=== PATIENT | female | born 1985 | race American Indian/Alaskan Native ===

== ENCOUNTER 2021-10-06 07:47 | Emergency (ER) | payer SELFPAY ==
[2021-10-06 08:01] VITALS: BP 133/68
--- NOTE | 2021-10-06 08:06 | Emergency Department Report ---
ED Seizure HPI - General Chief Complaint: Seizure Stated Complaint: sEIZURE Time Seen by Provider: 10/06/21 07:48 Source: patient, EMS Mode of arrival: Wheelchair Limitations: No Limitations - History of Present Illness Initial Comments: Chief complaint: Seizure HPI: This is a 36-year-old female with history of insulin-dependent diabetes who presents with seizure activity. Seizure witnessed by . Lasted 5 minutes. Generalized tonic-clonic seizure. Patient did bite her tongue. She was in her normal state of health. Recent change in medication. Her dose of NovoLog 70/30 recently changed. She takes 60 units twice a day. Patient arrive d via EMS. Additional history obtained by her . Over the last 2 weeks he has noticed at least 4 episodes in the middle night. During these episodes, patient would sit up out of her sleep. She would seem dazed. She would not speak or answer questions during these episodes. Today she had a similar episode. She awakened out of sleep. She would not answer questions or make eye contact. She started jerking. She then had a full seizure witnessed by . She had a recent job change. New Job requires more energy and more hours. No new social stressors otherwise. According to she drinks wine on occasion. MD Complaint: seizure -: Sudden, This morning Description of Episode: loss of consciousness, tonic-clonic movement Witnessed:: Yes Trauma: Yes (Tongue bite) Seizure History: none Place: home Possible Precipitating Event: none Associated Symptoms: denies other symptoms Treatments Prior to Arrival: none, other (EMS transport) - Related Data Allergies Allergy/AdvReac Type Severity Reaction Status Date / Time No Known Allergies Allergy Verified 10/06/21 07:53 ED Review of Systems ROS: Stated complaint: sEIZURE Other details as noted in HPI Comment: All other systems reviewed and negative Constitutional: denies: chills, fever, malaise ENT: denies: throat pain Respiratory: denies: cough, shortness of breath Cardiovascular: denies: chest pain Gastrointestinal: denies: abdominal pain, nausea ED Past Medical Hx - Past Medical History Previous Medical History?: Yes Hx Diabetes: Yes - Surgical History Past Surgical History?: Yes Additional Surgical History: LEEP procedure - Social History Smoking Status: Never Smoker Substance Use Type: Alcohol ED Physical Exam - General Limitations: No Limitations General appearance: alert, in no apparent distress - Head Head exam: Present: atraumatic, normocephalic - Eye Eye exam: Present: normal appearance - ENT ENT exam: Present: mucous membranes moist - Neck Neck exam: Present: normal inspection, full ROM - Respiratory Respiratory exam: Present: normal lung sounds bilaterally. Absent: respiratory distress, wheezes, rales, rhonchi - Cardiovascular Cardiovascular Exam: Present: normal rhythm, tachycardia, normal heart sounds. Absent: systolic murmur, diastolic murmur, rubs, gallop - GI/Abdominal GI/Abdominal exam: Present: soft, normal bowel sounds. Absent: distended, tenderness, guarding, rebound - Extremities Exam Extremities exam: Present: normal inspection - Neurological Exam Neurological exam: Present: alert, oriented X3 - Psychiatric Psychiatric exam: Present: normal affect, normal mood - Skin Skin exam: Present: warm, dry, intact, normal color. Absent: rash ED Course Vital Signs 10/06/21 10/06/21 10/06/21 08:00 08:01 08:04 Temperature 97.5 F L Pulse Rate 110 H Respiratory 16 Rate Blood Pressure 133/68 [Left] O2 Sat by Pulse 100 100 Oximetry ED Medical Decision Making - Lab Data Result diagrams: 10/06/21 08:31 10/06/21 08:31 - Radiology Data Radiology results: report reviewed CT head without contrast: No acute abnormality - Medical Decision Making First procedure: For previous episodes during the night whereas patient days and unresponsive to questioning. I suspect recurrent hypoglycemia. Patient recently decreased her NovoLog 70/30 dose from 70 units to 60 units. Her hemoglobin A1c is in the 5 range. I recommended neurology evaluation. Chemistry reflects lactic acidosis seizure history. I do not suspect DKA with normal glucose. Labs otherwise unremarkable. She is discharged home with neurology follow-up. She understands that she is not allowed to drive. Recommended to avoid heat surfaces or swimming. Critical care attestation.: If time is entered above; I have spent that time in minutes in the direct care of this critically ill patient, excluding procedure time. ED Disposition Clinical Impression: Seizure, Insulin dependent diabetes mellitus Disposition: 01 HOME / SELF CARE / HOMELESS Is pt being admited?: No Does the pt Need Aspirin: No Condition: Stable Instructions: Diabetes Mellitus Type 2 in Adults (ED), Seizure, Adult Referrals: KOURTNEY LEOS MD [Referring] - 3-5 Days
[2021-10-06 09:16] LABS: Basophils % (Auto) TNR % (0.0-1.8); Eosinophils % (Auto) TNR % (0.0-4.3); Hematocrit TNR % (30.3-42.9); Hemoglobin TNR gm/dl (10.1-14.3); Lymphocytes % (Auto) TNR % (13.4-35.0); Mean Corpuscular HGB Conc TNR % (30-34); Mean Corpuscular Volume TNR fl (79-97); Monocytes % (Auto) TNR % (0.0-7.3); Platelet Count TNR K/mm3 (140-440); Red Blood Count TNR M/mm3 (3.65-5.03); Red Cell Distribution Width TNR % (13.2-15.2)
[2021-10-06 09:17] LABS: Basophils # (Auto) TNR K/mm3 (0.0-0.1); Eosinophils # (Auto) TNR K/mm3 (0.0-0.4); Lymphocytes # (Auto) TNR K/mm3 (1.2-5.4); Monocytes # (Auto) TNR K/mm3 (0.0-0.8)
[2021-10-06 09:32] LABS: Alanine Aminotransferase 14 units/L (7-56); BUN/Creatinine Ratio 16; Blood Urea Nitrogen 13 mg/dL (7-17); Calcium 8.8 mg/dL (8.4-10.2); Hemolysis Index 313
[2021-10-06 09:49] LABS: Amphetamine Screen,Urine Negative; Benzodiazepines Screen,Urine Negative; Cannabinoid Screen,Urine Negative; Cocaine Screen,Urine Negative; Methadone Screen,Urine Negative; Opiate Screen,Urine Negative
--- NOTE | 2021-10-06 10:01 | Cat Scan Report ---
CT head without contrast INDICATION : First-time seizure. TECHNIQUE: Axial imaging performed from the skull apex through the skull base without the use of con trast. All CT scans at this location are performed using CT dose reduction for ALARA by means of aut omated exposure control. COMPARISON: None FINDINGS: Parenchyma: No acute intracranial hemorrhage or parenchymal abnormality. Ventricles: Ventricles are normal in size and appear symmetric. Soft tissues: Soft tissues including the orbits appear normal. Bones: No acute osseous abnormality. Sinuses: Sinuses and mastoid air cells are clear. IMPRESSION: No acute abnormality. Signer Name: Feng Martin MD Signed: 10/06/2021 9:57 AM Workstation Name: [id number]
[2021-10-06 10:30] LABS: Bacteria,Urine 1+ /HPF (Negative); Bilirubin,Urine NEG (Negative); Blood,Urine SM (Negative); Color,Urine Straw (Yellow); Protein,Urine <15 mg/dL mg/dL (Negative); Urobilinogen,Urine < 2.0 mg/dL (<2.0)
[2021-10-06 10:34] LABS: RBC,Urine < 1.0 /HPF (0.0-6.0)
== END 2021-10-06 10:47 | disposition home or self-care (01) ==
LOC: ED 07:47
DX: R56.9 Unspecified convulsions (principal); E11.9 Type 2 diabetes mellitus without complications; Z79.899 Other long term (current) drug therapy; Z72.89 Other problems related to lifestyle
CPT/HCPCS: 36415; 70450; 80053; 80307; 80320; 81001; 84703; 85025; 99284; G0480